=== PATIENT | female | born 1970 | race Caucasian/White ===

== ENCOUNTER 2023-11-04 22:47 | Emergency (ER) | payer OTHER ==
[~2023-11-04] VITALS: Ht 165.1 cm; Wt 98.9 kg
[2023-11-04 23:03] VITALS: BP_SYST 153; PULSE 70; RESP 19; TEMP 97.4; O2SAT 96
[2023-11-05 04:01] VITALS: BP_SYST 153; PULSE 70; RESP 19; TEMP 97.4; O2SAT 96
== END 2023-11-05 04:02 | disposition home or self-care (01) ==
LOC: SED 22:47
DX: M25.531 Pain in right wrist (principal); M25.562 Pain in left knee; R51.9 Headache, unspecified; R03.0 Elevated blood-pressure reading, without diagnosis of hypertension; Y08.89XA Assault by other specified means, initial encounter; Y93.89 Activity, other specified; Y92.89 Other specified places as the place of occurrence of the external cause; Y99.8 Other external cause status
CPT/HCPCS: 99281